=== PATIENT | female | born 1990 | race Caucasian/White ===

== ENCOUNTER 2017-10-03 21:58 | Inpatient (IN) | payer OTHER ==
[2017-10-03 22:53] LABS: APPEARANCE,URINE SLIGHTLY-CLOUDY; BILIRUBIN,URINE NEGATIVE (NEGATIVE); COLOR,URINE YELLOW; GLUCOSE, URINE NEGATIVE (NEGATIVE); KETONES,URINE NEGATIVE (NEGATIVE); LEUKOCYTE ESTERASE,URINE SMALL (NEGATIVE); NITRITE,URINE NEGATIVE (NEGATIVE); PROTEIN,URINE NEGATIVE (NEGATIVE); UROBILINOGEN,URINE NEGATIVE mg/dL (<2.0)
[2017-10-03 23:09] LABS: URINE AMPHETAMINES SCREEN NEGATIVE; URINE BARBITURATES SCREEN NEGATIVE; URINE BENZODIAZEPINES SCREEN NEGATIVE; URINE COCAINE SCREEN NEGATIVE; URINE MARIJUANA (THC) SCREEN NEGATIVE; URINE METHADONE SCREEN NEGATIVE; URINE PHENCYCLIDINE SCREEN NEGATIVE
[2017-10-04 01:01] LABS: ABSOLUTE BASOPHILS # (AUTO) 0.1 10^3/uL (0.0-0.2); ABSOLUTE EOSINOPHILS # (AUTO) 0.1 10^3/uL (0.0-0.6); ABSOLUTE LYMPHOCYTES (AUTO) 1.3 10^3/uL (0.5-4.7); ABSOLUTE MONOCYTES (AUTO) 0.8 10^3/uL (0.1-1.4); ABSOLUTE NEUT (AUTO) 11.9 10^3/uL (1.7-8.2); BASOPHILS % (AUTO) 0.4 % (0-2); EOSINOPHILS % (AUTO) 0.8 % (0-6); HEMOGLOBIN 14.1 g/dL (12.0-15.5); LYMPHOCYTES % (AUTO) 9.4 % (13-45); MEAN CORPUSCULAR HEMOGLOBIN 31.1 pg (27.0-33.4); MEAN CORPUSCULAR HGB CONC 34.4 g/dL (32.0-36.0); MEAN CORPUSCULAR VOLUME 90 fl (80-97); MONOCYTES % (AUTO) 5.7 % (3-13); PLATELET COUNT 327 10^3/uL (150-450); RED BLOOD COUNT 4.54 10^6/uL (3.72-5.28); RED CELL DISTRIBUTION WIDTH 13.1 % (11.5-14.0); SEGMENTED NEUTROPHILS % (AUTO) 83.7 % (42-78); TOTAL CELLS COUNTED % (AUTO) 100 %; WHITE BLOOD COUNT 14.3 10^3/uL (4.0-10.5)
[2017-10-04] MEDS: RINGERS SOLUTION,LACTATED 1,000 ML IV PRN ×2 (01:29→11:32)
[2017-10-04] MEDS ORDERED: ONDANSETRON HCL INJ/PF 4 MG/2 ML SDV ONE (02:02)
[2017-10-04] MEDS ORDERED: FENTANYL CITRATE INJ/PF 100 MCG/2 ML AMPUL ONE (02:33)
[2017-10-04] MEDS ORDERED: BUPIVACAINE HCL 0.25 % INJ/PF (2.5 MG/1 ML) 30 ML VIAL ONE (02:35)
[2017-10-04] MEDS ORDERED: FENTANYL/BUPIVACAINE/NS/PF 200 MCG/100 ML RTUINJ EPI ONE ×2 (02:35→10:02)
--- NOTE | 2017-10-04 04:43 | Admission Physical ---
Datetime Report Generated by CPN: 10/04/2017 04:43 CURRENT ADMISSION Chief Complaint: Uterine Contractions; Suspected Ruptured Membranes Indication for Induction: Post Dates Admit Impression : Term, Intrauterine ; Ruptured Membranes; Induction of Labor Admit Plan: Admit to Unit Admit Plan- Other: 1. admit labor and delivery 2. induction of labor pitocin 3. gbs negative 4. anticipate 5. hx of left leg melanoma removal in 2012 - plan to send placenta after delivery. ALLERGIES Medication Allergies: No Latex: No Latex Allergies OBSTETRICAL HISTORY EDC: 09/30/2017 00:00 : 1 Para: 0 Gestational Diabetes: No Rh Sensitization: No Incompetent Cervix: No DILLAN: No Infertility: No ART Treatment: No Uterine Anomaly: No IUGR: No Hx Previous C/S: No Macrosomia: No Hx Loss/Stillborn: No PIH: No Hx : No Placenta Previa/Abruption: No Depression/PP Depression: No PTL/PROM: No Post Hemorrhage: No Obstetrical History Comments: g1 - current 2 vessel cord SEE RECORDS Alcohol: No Marijuana : No Cocaine: No Other Illicit Drugs: No Cigarettes: Never Smoker. [phone] MEDICAL HISTORY Diabetes: No Blood Transfusion: No Pulmonary Disease (Asthma, TB): No Breast Disease: No Hypertension: No Shop Estimator Surgery: No Heart Disease: No Hosp/Surgery: No Autoimmune Disorder: No Anesthetic Complications: No Kidney Disease: No Abnormal Pap Smear: No Neuro/Epilepsy: No Psychiatric Disorders: No Other Medical Diseases: No Hepatitis/Liver Disease: No Significant Family History: No Varicosities/Phlebitis: No Trauma/Violence : No Thyroid Dysfunction: No Medical History Comments: melanoma on left leg removal, breast aug (Annotations: Data stored by N on behalf of user) INFECTIOUS HISTORY Gonorrhea: No Genital Herpes: No Chlamydia: No Tuberculosis: No Syphilis: No Hepatitis: No HIV/AIDS Exposure: No Rash or Viral Illness: No HPV: No Infectious History Comments: LGSIL needs colpo done PHYSICAL EXAM General: Normal HEENT: Normal Neurologic: Normal Thyroid: Normal Heart: Normal Lungs: Normal Breast: Normal Back: Normal Abdomen: Normal Genitourinary Exam: Normal Extremities: Normal DTRs: Normal Pelvic Type: Adequate VAGINAL EXAM Dilatation: 2 Effacement: 50 Station: -3 MEMBRANES Pooling: Positive Ferning Results: Positive Membranes: Ruptured Amniotic Fluid Color: Clear FETUS A EGA: 40.4 Monitoring: External US FHR- Baseline: 125 Variability: Moderate 6-25bpm Accelerations: 15X15 Decelerations: None PLANS FOR LABOR AND DELIVERY Labor and Delivery: None Pain Management: Epidural Feeding Preference: Breast Benefit of Breast Feed Discussed: Yes Circumcision: N/A INFORMED CONSENT Signature: Electronically signed by MD Harry [facility]FIRST[facility]) on 10/04/2017 at 04:43 with User ID: [email or web address]
[2017-10-04] MEDS ORDERED: LIDOCAINE 1% INJ-PF (10 MG/ML) 30 ML SDV ONE (06:01)
[2017-10-04] MEDS ORDERED: MISOPROSTOL 0.2 MG TABLET ONE (06:01)
[2017-10-04] MEDS ORDERED: OXYTOCIN/NORMAL SALINE 20 UNIT/1,000 ML RTUINJ ONE (06:01)
--- NOTE | 2017-10-04 06:02 | L&D Progress Notes ---
PROGRESS NOTES Datetime Report Generated by CPN: 10/04/2017 06:02 PROGRESS NOTE Impression: Normal Progression of Labor Procedures: Sterile Vag Exam Plan: Continue Present Management; Anticipate Vaginal Delivery VAGINAL EXAM Dilatation: 10 Dilatation: 2 Effacement: 90 Effacement: 50 Station: 1 Station: -3 Contractions: q4-5 MEMBRANES Pooling: Positive Ferning Results: Positive Membranes: Ruptured Amniotic Fluid Color: Clear FETUS A FHR - Baseline: 125 Variability: Moderate 6-25bpm Accelerations: 15X15 Decelerations: Variable : 40.4 SIGNATURE SIGNATURE: [id number];[id number] SIGNATURE: [id number] Signature: with User ID: [email or web address]
[2017-10-04] MEDS ORDERED: FAMOTIDINE 20 MG TABLET ONE (07:32)
[2017-10-04] MEDS ORDERED: MISOPROSTOL 0.2 MG TABLET PR PRN (07:49)
[2017-10-04] MEDS ORDERED: OXYTOCIN/NORMAL SALINE 20 UNIT/1,000 ML RTUINJ IV PRN ×3 (07:49→15:28)
[2017-10-04] MEDS ORDERED: LIDOCAINE 1% INJ-PF (10 MG/ML) 30 ML SDV INJ PRN (07:49)
[2017-10-04] MEDS ORDERED: EPHEDRINE SULFATE INJ 50 MG/1 ML AMPULE IV PRN (07:53)
[2017-10-04] MEDS ORDERED: BUPIVACAINE HCL 0.25 % INJ/PF (2.5 MG/1 ML) 30 ML VIAL INFIL ONE (07:53)
[2017-10-04] MEDS ORDERED: FENTANYL/BUPIVACAINE/NS/PF 200 MCG/100 ML RTUINJ EPI PRN (07:53)
[2017-10-04] MEDS ORDERED: BENZOIN/ALOE VERA/STORAX/TOLU TINCTURE 60 ML TP PRN (07:53)
[2017-10-04] MEDS ORDERED: GLYCERIN/WITCH HAZEL LEAF 1 EACH MED..PAD TP PRN (15:28)
[2017-10-04] MEDS ORDERED: NA PHOS,M-B/NA PHOS,DI-BA (ADULT) 133 ML ENEMA PR PRN (15:28)
[2017-10-04] MEDS ORDERED: PROMETHAZINE HCL 25 MG TABLET PO PRN (15:28)
[2017-10-04] MEDS ORDERED: DIPHENHYDRAMINE HCL 25 MG CAPSULE PO PRN (15:28)
[2017-10-04] MEDS ORDERED: DIPH/PERTUSS(ACELL)/TETANUS VAC/PF 0.5 ML SYR (>=10YO) IM PRN (15:28)
[2017-10-04] MEDS ORDERED: ACETAMINOPHEN 650 MG SUPP.RECT PR PRN (15:28)
[2017-10-04] MEDS ORDERED: PSEUDOEPHEDRINE HCL 30 MG TABLET PO PRN (15:28)
[2017-10-04] MEDS ORDERED: MAGNESIUM HYDROXIDE SUSP 30 ML UDCUP PO PRN (15:28)
[2017-10-04] MEDS ORDERED: PROMETHAZINE HCL INJ 25 MG/1 ML VIAL IV PRN (15:28)
[2017-10-04] MEDS ORDERED: ZOLPIDEM TARTRATE 5 MG TABLET PO PRN (15:28)
[2017-10-04] MEDS ORDERED: DIBUCAINE 1% OINTMENT 28 GM TP PRN (15:28)
[2017-10-04] MEDS ORDERED: MEASLES,MUMPS&RUBELLA VACC/PF 0.5 ML VIAL SUBCUT PRN (15:28)
[2017-10-04] MEDS ORDERED: PROMETHAZINE HCL 25 MG SUPP.RECT PR PRN (15:28)
[2017-10-04] MEDS ORDERED: BENZOCAINE/MENTHOL AEROSOL SPRAY 56 ML TOP PRN (15:28)
[2017-10-04] MEDS ORDERED: ACETAMINOPHEN WITH CODEINE #3 TABLET PO PRN ×2 (15:28)
[2017-10-04] MEDS ORDERED: OXYTOCIN 10 UNIT/ML VIAL ONE (15:31)
[2017-10-04] MEDS ORDERED: IBUPROFEN 800 MG TABLET ONE (15:57)
[2017-10-04] MEDS ORDERED: ACETAMINOPHEN 325 MG TABLET ONE (17:10)
[2017-10-04] MEDS: DOCUSATE SODIUM 100 MG CAPSULE PO SCH (17:20)
[2017-10-04] MEDS: FERROUS SULFATE 325 MG TABLET PO SCH (17:20)
[2017-10-04] MEDS ORDERED: DOCUSATE SODIUM 100 MG CAPSULE ONE (17:21)
[2017-10-04] MEDS ORDERED: FERROUS SULFATE 325 MG TABLET PO ONE (17:21)
[2017-10-04] MEDS: IBUPROFEN 800 MG TABLET PO SCH (21:41)
[2017-10-04] MEDS: FAMOTIDINE 20 MG TABLET PO SCH (21:41)
[2017-10-04] MEDS ORDERED: FAMOTIDINE 20 MG TABLET PO SCH (22:00)
[2017-10-05] MEDS: IBUPROFEN 800 MG TABLET PO SCH ×3 (05:07→22:23)
[2017-10-05 07:34] LABS: HEMATOCRIT 34.1 % (36.0-47.0); MEAN CORPUSCULAR HEMOGLOBIN 31.2 pg (27.0-33.4); MEAN CORPUSCULAR HGB CONC 34.1 g/dL (32.0-36.0); MEAN CORPUSCULAR VOLUME 91 fl (80-97); PLATELET COUNT 285 10^3/uL (150-450); RED BLOOD COUNT 3.73 10^6/uL (3.72-5.28); RED CELL DISTRIBUTION WIDTH 13.5 % (11.5-14.0); WHITE BLOOD COUNT 13.2 10^3/uL (4.0-10.5)
[2017-10-05 07:35] LABS: HEMOGLOBIN 11.6 g/dL (12.0-15.5)
--- NOTE | 2017-10-05 08:28 | PDOC PROGRESS REPORT ---
Subjective-OB Progress Note for:: 10/05/17 Subjective: s/p day #1 Feeling well, denies concerns, states lochia is stable, pain well controlled, voiding without difficulty. Physical Exam (OB) Vital Signs: Temp Pulse Resp BP Pulse Ox 97.7 F 79 16 107/52 L 100 10/05/17 07:21 10/05/17 07:21 10/05/17 07:21 10/05/17 07:21 10/05/17 07:21 Intake & Output 10/04/17 10/05/17 10/06/17 06:59 06:59 06:59 Intake Total 500 Balance 500 Weight 78.925 kg - PIH/Pre-Eclampsia DTR's: 2 + Clonus: Negative Headache: Absent Epigastric Pain: No Visual Changes: No - Lochia Lochia Amount: Scant < 10 ml Lochia Color: Rubra/Red - Abdomen Description: Soft Hernia Present: No Fundal Description: Firm, Midline Fundal Height: u/u - u/2 Objective-Diagnostic Laboratory: 10/05/17 07:09 10/05/17 07:09 WBC 13.2 H RBC 3.73 Hgb 11.6 L D Hct 34.1 L MCV 91 MCH 31.2 MCHC 34.1 RDW 13.5 Plt Count 285 Assessment and Plan(PN) - Assessment and Plan (1) Vaginal delivery Is this a current diagnosis for this admission?: Yes Plan: routine pp care (2) Acute blood loss anemia Is this a current diagnosis for this admission?: Yes Plan: increase dietary iron ferrous sulfate - Time Spent with Patient Time with patient: Less than 15 minutes Critical Time spent with patient: Less than 15 minutes Medications reviewed and adjusted accordingly: Yes - Disposition Anticipated Discharge: Home Within: within 24 hours
[2017-10-05] MEDS: DOCUSATE SODIUM 100 MG CAPSULE PO SCH ×2 (09:26→19:16)
[2017-10-05] MEDS: PRENATAL VITAMIN W DHA CAPSULE PO SCH (09:27)
[2017-10-05] MEDS: FERROUS SULFATE 325 MG TABLET PO SCH ×2 (09:27→19:16)
[2017-10-05] MEDS: FAMOTIDINE 20 MG TABLET PO SCH ×2 (09:27→22:23)
[2017-10-05] MEDS: SENNOSIDES/DOCUSATE 8.6-50 MG 1 EACH TABLET PO SCH (09:27)
[2017-10-06] MEDS: IBUPROFEN 800 MG TABLET PO SCH (05:21)
[2017-10-06] MEDS: FAMOTIDINE 20 MG TABLET PO SCH (09:06)
[2017-10-06] MEDS: SENNOSIDES/DOCUSATE 8.6-50 MG 1 EACH TABLET PO SCH (09:06)
[2017-10-06] MEDS: DOCUSATE SODIUM 100 MG CAPSULE PO SCH (09:06)
[2017-10-06] MEDS: PRENATAL VITAMIN W DHA CAPSULE PO SCH (09:06)
[2017-10-06] MEDS: FERROUS SULFATE 325 MG TABLET PO SCH (09:06)
[2017-10-06 10:01] VITALS: BP 106/65
--- NOTE | 2017-10-06 15:46 | PDOC DISCHARGE SUMMARY ---
Final Diagnosis Discharge Date: 10/06/17 - Final Diagnosis (1) Vaginal delivery Is this a current diagnosis for this admission?: Yes (2) Acute blood loss anemia Is this a current diagnosis for this admission?: Yes Discharge Data - Discharge Medication Prescriptions: Ibuprofen [Motrin 800 mg Tablet] 800 mg PO Q8HP PRN #30 tablet PRN Reason: Abdominal Cramping Docusate Sodium [Colace 100 mg Capsule] 100 mg PO BID #60 capsule Home Medications: Vit/Iron Fum/Folic AC [ Tablet] 1 tab PO DAILY 10/04/17 Docusate Sodium [Colace 100 mg Capsule] 100 mg PO BID #60 capsule 10/06/17 Ibuprofen [Motrin 800 mg Tablet] 800 mg PO Q8HP PRN #30 tablet 10/06/17 Reason(s) for Admission: Onset of Labor Procedures: NST, Ultrasound Intrapartum Procedure(s): Spontaneous Vaginal Delivery - Diagnosis Test Laboratory: Temp Pulse Resp BP Pulse Ox 97.4 F 71 18 106/65 98 10/06/17 12:04 10/06/17 12:04 10/06/17 12:04 10/06/17 09:13 10/06/17 12:04 10/03/17 10/04/17 10/05/17 22:05 00:35 07:09 RBC 4.54 3.73 Hgb 14.1 11.6 L D Hct 41.0 34.1 L Urine Opiates Screen NEGATIVE - Discharge information/Instructions Discharge Activity: Activity As Tolerated, Balance Activity w/Rest, Pelvic Rest , Slowly Increase Activity, No tub bath, Walk Frequently Discharge Diet: Regular Disposition: HOME, SELF-CARE Follow up with: [facility] in: 4, Weeks
--- NOTE | 2017-10-20 14:35 | Delivery Summary ---
Del Sum A-C Datetime Report Generated by CPN: 10/20/2017 14:34 DELIVERY PERSONNEL DELIVERY PERSONNEL: [id number] Delivery Doctor:: Zulay Ron MC Labor and Delivery Nurse:: Justina Belle RNdie maker stamping Nurse:: Sandra Cooper RN Nursery Nurse:: Mariama Trinh RN Nursery Nurse:: Mariama Trinh RN Director Of Partner Marketing/BUILDING CUSTODIAL SUPERVISOR: Angel Mora, DIETITIAN MATERNAL INFORMATION Delivery Anesthesia: Epidural Medications After Delivery: Pitocin Bolus-Please Comment Meds After Delivery Comment: Pitocin 20 units/1000 mL NS bolus following placenta Maternal Complications: None LABOR SUMMARY EDC: 09/30/2017 00:00 No. Babies in Womb: 1 Attempted: No Labor Anesthesia: Epidural LABOR INFORMATION Reason for Induction: Not Applicable Onset of Labor: 10/03/2017 20:00 Complete Dilatation: 10/04/2017 11:20 Oxytocin: Augmentation Group B Beta Strep: negative Antibiotics # of Doses: 0 Antibiotics Time of Last Dose: n/a Steroids Given: None Reason Steroids Not Administered: Not Applicable MEMBRANES Membranes Rupture Method: Spontaneous Rupture of Membranes: 10/03/2017 07:30 Length of Rupture (hr): 31.68 Amniotic Fluid Color: Clear Amniotic Fluid Amount: Scant Amniotic Fluid Odor: Normal STAGES OF LABOR Stage 1 hr: 15 Stage 1 min: 20 Stage 2 hr: 3 Stage 2 min: 51 Stage 3 hr: 0 Stage 3 min: 5 Total Time in Labor hr: 19 Total Time in Labor min: 16 VAGINAL DELIVERY Episiotomy: None Laceration #1: None Laceration Extension #1: N/A Laceration Repair: Not Applicable Sponge Count Correct: Yes Sharps Count Correct: Yes CSECTION DELIVERY Primary Indication: N/A Secondary Indication: N/A CSection Urgency: N/A CSection Incidence: N/A Labor: N/A Elective: N/A CSection Incision: N/A BABY A INFORMATION Infant Delivery Date/Time: 10/04/2017 15:11 Method of Delivery: Vaginal Born in Route : No : N/A Forceps: N/A Vacuum Extraction: Successful Shoulder Dystocia : No PRESENTATION/POSITION BABY A Presentation: Cephalic Presentation: Cephalic Cephalic Presentation: Vertex Vertex Position: Right Occipital Anterior Breech Presentation: N/A PLACENTA INFORMATION BABY A Placenta Delivery Time : 10/04/2017 15:16 Placenta Method of Delivery: Spontaneous Placenta Method of Delivery: Spontaneous Placenta Status: Delivered SCORES BABY A Heart Rate 1 min: >100 bpm Resp Effort 1 min: Good Cry Reflex Irritability 1 min: Cough or Sneeze or Pulls Away Muscle Tone 1 min: Some Flexion of Extremities Color 1 min: Body [place], Extremities Blue Resuscitation Effort 1 min: Tactile Stimulation SCORE 1 MIN: 8 Heart Rate 5 min: >100 bpm Resp Effort 5 min: Good Cry Reflex Irritability 5 min: Cough or Sneeze or Pulls Away Muscle Tone 5 min: Active Motion Color 5 min: Body [place], Extremities Blue Resuscitation Effort 5 min: Tactile Stimulation SCORE 5 MIN: 9 INFORMATION BABY A Gestational Age at Delivery: 40.4 Gestational Status: Full Term- 39- 40.6 Weeks Outcome : Liveborn Condition : Stable Sex: Female IDENTIFICATION BABY A Verification Date/Time: 10/04/2017 15:33 ID Band Number: [id number] Mother's Name Verified: Yes RN Verifying Infant: B Baidy RN/ B Jules RN WEIGHT/LENGTH BABY A Birthweight (gm): 3270 Infant Weight (lb): 7 Infant Weight (oz): 3 Infant Length (in): 20.50 Length (cm): 52.07 CORD INFORMATION BABY A No. Cord Vessels: 2 Nuchal Cord : Around Neck x1, Loose Cord Blood Taken: Yes-For Storage (Mom's Blood type +) Suction: Mouth ASSESSMENT BABY A Complications: Multiple Variable Decels; Meconium Physical Findings at Delivery: Within Normal Limits; Caput Succedaneum; Molding of the Head Respirations: Appears Normal Skin to Skin: Yes Floor Polisher/ALS Called : No Care By: David Alfaro RN, David Peters RN Transferred To: Remains with Mother BABY B INFORMATION : N/A
== END 2017-10-06 14:27 | disposition home or self-care (01) | DRG 775 ==
LOC: LC 21:58 → LR 10-04 00:12 → 2S 10-04 17:47
PROVIDERS: ADMIT Obstetrics & Gynecology; ATTEND Obstetrics & Gynecology
PROC: 10D07Z6 Extraction of Products of Conception, Vacuum, Via Natural or Artificial Opening (ICD-10-PCS; principal; 2017-10-04)
PROC: 4A1HXCZ Monitoring of Products of Conception, Cardiac Rate, External Approach (ICD-10-PCS; 2017-10-04)
DX: O48.0 Post-term pregnancy (principal); D62 Acute posthemorrhagic anemia; O99.02 Anemia complicating childbirth; O69.81X0 Labor and delivery complicated by cord around neck, without compression, not applicable or unspecified; Z85.820 Personal history of malignant melanoma of skin; Z3A.40 40 weeks gestation of pregnancy; Z37.0 Single live birth
CPT/HCPCS: 36415; 80307; 81005; 85025; 85027; 86592; 86850; 86900; 86901; J2405; J2590; J3010; J3490; Q0114